=== PATIENT | male | born 1990 | race Caucasian/White ===

== ENCOUNTER 2022-08-14 13:11 | Emergency (ER) | payer OTHER ==
[~2022-08-14] VITALS: Ht 186.7 cm; Wt 113.6 kg
[~2022-08-14 13:11] MED LIST: ADDERALL10 MG PO; ADDERALL30 MG PO; CLONIDINE0.1 MG PO; FIORICE1 PO; HALDOL1 MG PO; HALOPERIDOL2 MG PO; HYDROCHLOROT XX; LATUDA80 MG PO; LISINOP/HCTZ1 TAB PO; METO50TA52 OR; METOPROL TAR25 MG PO; OFLOXACIN0.3 % OP; PREVACID30 M2 PO; PROPRANOLOL HCL20 MG PO; RISPERIDONE1 MG PO; SYNTHROID OR; TAMAZAPAM PO; TOPROL XL100 MG OR; TRILEPTAL300 M1 PO; TRILEPTAL300 MG PO; ZITHROMAX250 MG OR; [UNRECOGNIZED DRUG - REMARK]
[2022-08-14] MEDS ORDERED: KEFLEX500 MG PO (16:16)
[2022-08-14] MEDS ORDERED: NAPROXEN500 MG PO (16:16)
[2022-08-14 16:35] VITALS: BP 158/110
== END 2022-08-14 16:35 | disposition home or self-care (01) ==
LOC: ED 13:11
DX: S91.212A Laceration without foreign body of left great toe with damage to nail, initial encounter (principal); W31.89XA Contact with other specified machinery, initial encounter; Y99.8 Other external cause status

== ENCOUNTER 2022-08-29 07:19 | Emergency (ER) | payer OTHER ==
[~2022-08-29] VITALS: Ht 186.7 cm; Wt 102.0 kg
[~2022-08-29 07:19] MED LIST changes: +KEFLEX500 MG PO; +NAPROXEN500 MG PO
[2022-08-29 07:30] VITALS: BP 173/104
[2022-08-29 07:32] VITALS: BP 184/83
[2022-08-29 08:05] VITALS: BP 184/83
== END 2022-08-29 08:12 | disposition home or self-care (01) ==
LOC: ED 07:19
DX: S91.212D Laceration without foreign body of left great toe with damage to nail, subsequent encounter (principal); X58.XXXD Exposure to other specified factors, subsequent encounter

== ENCOUNTER 2023-04-01 06:10 | Emergency (ER) | payer OTHER ==
[~2023-04-01] VITALS: Ht 185.4 cm; Wt 126.0 kg
[2023-04-01 06:17] VITALS: BP 154/98
[2023-04-01 07:01] VITALS: BP 117/73
[2023-04-01] MEDS ORDERED: CLINDAMYCIN300 M1 PO (07:12)
[2023-04-01 07:56] VITALS: BP 117/73
== END 2023-04-01 08:00 | disposition home or self-care (01) ==
LOC: ED 06:10
DX: K08.89 Other specified disorders of teeth and supporting structures (principal); I10 Essential (primary) hypertension; F17.210 Nicotine dependence, cigarettes, uncomplicated

== ENCOUNTER 2023-08-05 18:13 | Emergency (ER) | payer OTHER ==
[~2023-08-05] VITALS: Ht 185.4 cm; Wt 128.8 kg
[~2023-08-05 18:13] MED LIST changes: +AMOX/K CLAV875 M1 PO; +CLINDAMYCIN300 M1 PO; +GEODON40 M1 PO; +HYDROXYZINE HCL10 MG PO; +MEDDOSEPAK PO; +METOPROLOL100 M1 PO; +PROVENTIL HFA108 MCG INHW/SPAC
[2023-08-05 18:29] VITALS: BP 157/104
[2023-08-05 18:30] VITALS: BP 168/107
[2023-08-05 18:41] LABS: BASO% 0.5 % (0-3); EOS% 2.8 % (0-8); HEMATOCRIT 44.8 % (39.0-50.0); IMMATURE GRANULOCYTES 0.3 % (0.0-5.0); LYMPH% 29.9 % (15-41); MEAN CELL VOLUME 89.4 fL CALC (80.0-100.0); MEAN CORPUSCULAR HGB 30.7 pG CALC (26.0-32.0); MEAN CORPUSCULAR HGB CONC 34.4 g/dL CAL (32.0-36.0); MONO% 9.7 % (2-13); NEUT# 4.33 thou/uL (1.82-7.42); NEUT% 56.8 % (42-76); RED BLOOD COUNT 5.01 mill/uL (4.70-6.10); RED CELL DISTRI WIDTH 13.4 % (11.5-15.5)
[2023-08-05 18:44] LABS: HEMOGLOBIN 15.4 g/dl (14.0-18.0)
[2023-08-05 18:59] LABS: ALBUMIN 4.9 g/dL (3.2-5.0); ALKALINE PHOSPHATASE 57 u/l (38-126); ANION GAP 15 (6-22 (CALC)); BILIRUBIN, TOTAL 0.4 mg/dL (0.2-1.3); BUN 6 mg/dL (9-20); BUN/CREATININE RATIO 5 (12-20 (CALC)); CARBON DIOXIDE 23 mmol/l (22-30); CHLORIDE 102 mmol/l (95-108); CREATININE 1.1 mg/dL (0.7-1.3); ETHYL ALCOHOL 139 mg/dl (0-30); GFR FOR AFR.AMER. > 60 ML/MIN (>=60 (CALC)); GFR OTHER RACES > 60 ML/MIN (>=60 (CALC)); POTASSIUM 3.9 mmol/l (3.5-5.1); SGOT/AST 36 u/l (17-59); SODIUM 137 mmol/l (137-146); TOTAL PROTEIN 7.5 g/dL (6.3-8.2)
[2023-08-05 23:00] VITALS: BP 137/84
== END 2023-08-05 23:00 | disposition designated cancer center or children's hospital (05) ==
LOC: ED 18:13
PROVIDERS: Family Medicine
DX: R45.851 Suicidal ideations (principal); I10 Essential (primary) hypertension; F31.9 Bipolar disorder, unspecified; F20.0 Paranoid schizophrenia; F17.200 Nicotine dependence, unspecified, uncomplicated; Z91.51 Personal history of suicidal behavior; Z20.822 Contact with and (suspected) exposure to COVID-19

== ENCOUNTER 2024-02-23 19:03 | Emergency (ER) | payer OTHER ==
[~2024-02-23] VITALS: Ht 185.4 cm; Wt 131.0 kg
[2024-02-23 19:19] VITALS: BP 148/85
[2024-02-23] MEDS ORDERED: IPRATROPIUM-Albuterol 0.5MG-2.5MG/3 ML NEB ONE (19:20)
[2024-02-23] MEDS ORDERED: predniSONE 20 MG/TAB PO ONE (19:25)
[2024-02-23 20:11] LABS: BASO% 0.6 % (0-3); EOS% 4.4 % (0-8); HEMATOCRIT 42.6 % (39.0-50.0); HEMOGLOBIN 15.2 g/dl (14.0-18.0); IMMATURE GRANULOCYTES 0.1 % (0.0-5.0); LYMPH% 23.3 % (15-41); MEAN CELL VOLUME 88.8 fL CALC (80.0-100.0); MEAN CORPUSCULAR HGB 31.7 pG CALC (26.0-32.0); MEAN CORPUSCULAR HGB CONC 35.7 g/dL CAL (32.0-36.0); MONO% 8.5 % (2-13); NEUT# 5.16 thou/uL (1.82-7.42); NEUT% 63.1 % (42-76); RED BLOOD COUNT 4.8 mill/uL (4.70-6.10); RED CELL DISTRI WIDTH 12.3 % (11.5-15.5)
[2024-02-23 20:24] LABS: ALBUMIN 4.5 g/dL (3.2-5.0); CREATININE 0.9 mg/dL (0.7-1.3); POTASSIUM 3.4 mmol/l (3.5-5.1); TOTAL PROTEIN 7.4 g/dL (6.3-8.2)
[2024-02-23 20:26] LABS: BILIRUBIN, TOTAL 0.4 mg/dL (0.2-1.3)
[2024-02-23 20:31] LABS: ACT PARTIAL THROMBO TIME 28.5 SECONDS (20.0-32.5); PROTHROMBIN TIME 9.9 SECONDS (9.0-12.5)
[2024-02-23 20:34] LABS: D-DIMER 0.22 mg/L (0.19-0.60)
[2024-02-23] MEDS ORDERED: VIBRAMYCIN100 M2 PO (21:08)
[2024-02-23] MEDS ORDERED: DOXYCYCLINE HYCLATE 100 MG/CAP PO ONE (21:10)
[2024-02-23 21:36] VITALS: BP 148/85
== END 2024-02-23 21:36 | disposition home or self-care (01) ==
LOC: ED 19:03
PROVIDERS: Family Medicine
DX: J40 Bronchitis, not specified as acute or chronic (principal); I10 Essential (primary) hypertension; F17.200 Nicotine dependence, unspecified, uncomplicated; Z20.822 Contact with and (suspected) exposure to COVID-19

== ENCOUNTER 2024-04-05 16:56 | Emergency (ER) | payer OTHER ==
[~2024-04-05] VITALS: Ht 185.4 cm; Wt 130.0 kg
[2024-04-05] VITALS (14 sets, daily range): BP systolic 135–182; BP diastolic 73–103
[~2024-04-05 16:56] MED LIST changes: +VIBRAMYCIN100 M2 PO
[2024-04-05] MEDS ORDERED: ACETAMINOPHEN 500 MG TAB PO ONE (17:10)
[2024-04-05] MEDS ORDERED: PIPERACILLIN Sodium-Tazobactam 4.5 GM in SODIUM CHLORIDE 0.9% 100 ML IV ONE (17:10)
[2024-04-05] MEDS ORDERED: SODIUM CHLORIDE 0.9% 1,000 ML IV ONE ×2 (17:10→19:00)
[2024-04-05] MEDS ORDERED: IPRATROPIUM-Albuterol 0.5MG-2.5MG/3 ML NEB ONE (17:20)
[2024-04-05 17:45] LABS: BASO% 0.2 % (0-3); EOS% 0.3 % (0-8); HEMATOCRIT 43.4 % (39.0-50.0); HEMOGLOBIN 15.1 g/dl (14.0-18.0); IMMATURE GRANULOCYTES 0.3 % (0.0-5.0); LYMPH% 2.8 % (15-41); MEAN CELL VOLUME 91.8 fL CALC (80.0-100.0); MEAN CORPUSCULAR HGB 31.9 pG CALC (26.0-32.0); MEAN CORPUSCULAR HGB CONC 34.8 g/dL CAL (32.0-36.0); MONO% 5.8 % (2-13); NEUT# 13.13 thou/uL (1.82-7.42); NEUT% 90.6 % (42-76); RED BLOOD COUNT 4.73 mill/uL (4.70-6.10); RED CELL DISTRI WIDTH 11.7 % (11.5-15.5)
[2024-04-05 17:57] LABS: ALBUMIN 4.9 g/dL (3.2-5.0); BILIRUBIN, TOTAL 0.8 mg/dL (0.2-1.3); TOTAL PROTEIN 7.9 g/dL (6.3-8.2)
[2024-04-05 18:08] LABS: URINE BILIRUBIN - DIPSTICK Negative (NEGATIVE); URINE BLOOD DIPSTICK Small (NEGATIVE); URINE GLUCOSE - DIPSTICK Negative (NEGATIVE); URINE KETONE Negative (NEGATIVE); URINE LEUK ESTERASE Negative (NEGATIVE); URINE NITRITE - DIPSTICK Negative (Negative); URINE PH 5.5 (4.5-8.0); URINE PROTEIN - DIPSTICK Negative (NEG-TRACE); URINE SPECIFIC GRAVITY <=1.005; URINE UROBILINOGEN - DIPSTICK 0.2 E.U./dL (0.2)
[2024-04-05 18:12] LABS: URINE COLOR Yellow
[2024-04-05 18:16] LABS: URINE RBC 0-2 RBC/hpf (0-5)
[2024-04-05] MEDS ORDERED: LOSARTAN POTASS50 MG PO (21:07)
[2024-04-05] MEDS ORDERED: LITHIUM CARB300 M2 PO (21:09)
[2024-04-05] MEDS ORDERED: HALDOL5 M1 PO (21:11)
[2024-04-05] MEDS ORDERED: OLANZAPINE5 MG PO (21:13)
[2024-04-05] MEDS ORDERED: FAMOTIDINE40 M1 PO (21:16)
[2024-04-05] MEDS ORDERED: OMEPRAZOLE DR20 MG PO (21:17)
[2024-04-05] MEDS ORDERED: INDERAL 20MG TA20 MG PO (21:17)
[2024-04-05] MEDS ORDERED: SERTRALINE50 MG PO (21:18)
[2024-04-05] MEDS ORDERED: DOXYCYCLINE HYCLATE 100 MG/CAP PO ONE (21:30)
== END 2024-04-05 22:34 | disposition home or self-care (01) ==
LOC: ED 16:56
PROVIDERS: Clinical Nurse Specialist Emergency
DX: J01.90 Acute sinusitis, unspecified (principal); J20.9 Acute bronchitis, unspecified; I10 Essential (primary) hypertension; F17.200 Nicotine dependence, unspecified, uncomplicated; Z20.822 Contact with and (suspected) exposure to COVID-19
CPT/HCPCS: Q9967

== ENCOUNTER 2024-06-02 15:52 | Emergency (ER) | payer OTHER ==
[~2024-06-02] VITALS: Ht 185.4 cm; Wt 136.0 kg
[2024-06-02] VITALS (7 sets, daily range): BP systolic 142–160; BP diastolic 65–89
[~2024-06-02 15:52] MED LIST changes: +FAMOTIDINE40 M1 PO; +HALDOL5 M1 PO; +INDERAL 20MG TA20 MG PO; +LITHIUM CARB300 M2 PO; +LOSARTAN POTASS50 MG PO; +OLANZAPINE5 MG PO; +OMEPRAZOLE DR20 MG PO; +SERTRALINE50 MG PO
[2024-06-02 16:26] LABS: BASO% 0.6 % (0-3); HEMATOCRIT 38.4 % (39.0-50.0); HEMOGLOBIN 13.6 g/dl (14.0-18.0); LYMPH% 22.3 % (15-41); MEAN CELL VOLUME 87.9 fL CALC (80.0-100.0); MEAN CORPUSCULAR HGB 31.1 pG CALC (26.0-32.0); MEAN CORPUSCULAR HGB CONC 35.4 g/dL CAL (32.0-36.0); MONO% 10.6 % (2-13); NEUT# 3.82 thou/uL (1.82-7.42); NEUT% 61.5 % (42-76); RED BLOOD COUNT 4.37 mill/uL (4.70-6.10); RED CELL DISTRI WIDTH 11.9 % (11.5-15.5)
[2024-06-02 16:39] LABS: ALBUMIN 4.8 g/dL (3.2-5.0); ALKALINE PHOSPHATASE 61 u/l (38-126); ANION GAP 16 (6-22 (CALC)); BILIRUBIN, TOTAL 0.6 mg/dL (0.2-1.3); BUN 7 mg/dL (9-20); BUN/CREATININE RATIO 7 (12-20 (CALC)); CHLORIDE 99 mmol/l (95-108); ESTIMATED GFR 101 ML/MIN (>=90 (CALC)); ETHYL ALCOHOL 76 mg/dl (0-30); POTASSIUM 3.2 mmol/l (3.5-5.1); SGOT/AST 67 u/l (17-59); SODIUM 134 mmol/l (137-146); TOTAL PROTEIN 7.8 g/dL (6.3-8.2)
[2024-06-02 16:41] LABS: CARBON DIOXIDE 22 mmol/l (22-30)
[2024-06-02] MEDS ORDERED: K-TAB20 MEQ PO (17:14)
[2024-06-02] MEDS ORDERED: POTASSIUM CHLORIDE 20 MEQ/TAB PO ONE (17:15)
== END 2024-06-02 17:40 | disposition home or self-care (01) ==
LOC: ED 15:52
PROVIDERS: Family Medicine
DX: I10 Essential (primary) hypertension (principal); E87.6 Hypokalemia; F10.90 Alcohol use, unspecified, uncomplicated; Y90.3 Blood alcohol level of 60-79 mg/100 ml; F20.9 Schizophrenia, unspecified; F17.290 Nicotine dependence, other tobacco product, uncomplicated

== ENCOUNTER 2024-06-17 13:08 | Emergency (ER) | payer OTHER ==
[~2024-06-17] VITALS: Ht 185.4 cm; Wt 130.0 kg
[~2024-06-17 13:08] MED LIST changes: +K-TAB20 MEQ PO
[2024-06-17 13:19] VITALS: BP 148/87
[2024-06-17 13:31] VITALS: BP 146/80
[2024-06-17 13:47] VITALS: BP 146/80
== END 2024-06-17 13:51 | disposition home or self-care (01) ==
LOC: ED 13:08
DX: I10 Essential (primary) hypertension (principal); F17.210 Nicotine dependence, cigarettes, uncomplicated